=== PATIENT | male | born 1960 | race Caucasian/White ===

== ENCOUNTER 2017-04-21 17:49 | Emergency (ER) | payer MEDICAID, OTHER | END 2017-04-21 20:40 | disposition left against medical advice (07) | LOC: ED 20:34 | DX: Z53.21 Procedure and treatment not carried out due to patient leaving prior to being seen by health care provider (principal); F10.129 Alcohol abuse with intoxication, unspecified ==

== ENCOUNTER 2017-05-08 16:44 | Emergency (ER) | payer MEDICAID, OTHER ==
[~2017-05-08] VITALS: Ht 167.6 cm; Wt 78.0 kg
[2017-05-08 16:52] VITALS: BP 173/103
== END 2017-05-08 18:03 ==
LOC: ED 17:57
DX: Z53.21 Procedure and treatment not carried out due to patient leaving prior to being seen by health care provider (principal)

== ENCOUNTER 2017-05-21 11:51 | Emergency (ER) | payer MEDICAID ==
[~2017-05-21] VITALS: Ht 172.7 cm; Wt 75.0 kg
[2017-05-21] MEDS ORDERED: SODIUM CHLORIDE FLUSH 10ML SYR IVF ONE (12:30)
[2017-05-21] MEDS ORDERED: THIAMINE 100 MG/ML, 2ML IM ONE (12:30)
[2017-05-21] MEDS ORDERED: LORazepam 2 MG/ML, 1ML IVPush PRN (12:30)
[2017-05-21] MEDS ORDERED: SODIUM CHLORIDE 0.9% 1,000ML IVBOLUS ONE (12:30)
[2017-05-21] MEDS ORDERED: ONDANSETRON 2MG/ML, 2ML IVPush ONE (12:30)
[2017-05-21] MEDS ORDERED: THIAMINE 100 MG/ML, 2ML ONE (12:39)
[2017-05-21] MEDS ORDERED: ONDANSETRON 2MG/ML, 2ML ONE (12:40)
[2017-05-21] MEDS ORDERED: LORazepam 2 MG/ML, 1ML ONE (12:40)
[2017-05-21 12:57] LABS: BASOPHILS # (AUTO) 0.03 x10^3/uL (0-0.1); BASOPHILS % (AUTO) 1 % (0-1); EOSINOPHILS # (AUTO) 0.13 x10^3/uL (0-0.4); EOSINOPHILS % (AUTO) 2 % (1-7); LYMPHOCYTES # (AUTO) 1.89 x10^3/uL (1-3.4); LYMPHOCYTES % (AUTO) 27 % (22-44); MD NO; MEAN CORPUSCULAR HEMOGLOBIN 34.6 pg (27.5-34.5); MEAN CORPUSCULAR VOLUME 101.8 fL (81-97); MEAN PLATELET VOLUME 8.6 fL (7.4-10.4); MONOCYTES # (AUTO) 1.19 x10^3/uL (0.2-0.8); MONOCYTES % (AUTO) 17 % (2-9); NEUTROPHILS # (AUTO) 3.66 x10^3/uL (1.8-6.8); NEUTROPHILS % (AUTO) 53 % (42-75); PLATELET COUNT 183 x10^3/uL (130-400); RED BLOOD COUNT 4.66 x10^6/uL (4.38-5.82); RED CELL DISTRIBUTION WIDTH 14.4 % (9.4-14.8)
[2017-05-21] MEDS ORDERED: PLEASE ENTER HEIGHT AND WEIGHT MC SCH (13:00)
[2017-05-21 13:04] LABS: ALANINE AMINOTRANSFERASE 126 U/L (12-78); ALBUMIN 3.5 g/dL (3.4-5.0); ANION GAP 11 mmol/L (5-15); CALCIUM 8.1 mg/dL (8.5-10.1); CHLORIDE 107 mmol/L (98-107); CREATININE 0.81 mg/dL (0.7-1.3)
[2017-05-21 13:07] LABS: ALKALINE PHOSPHATASE 78 U/L (45-117); BILIRUBIN,TOTAL 0.6 mg/dL (0.2-1.0); TOTAL PROTEIN 7.6 g/dL (6.4-8.2)
[2017-05-21 13:30] LABS: MICROSCOPIC INDICATED
[2017-05-21 13:57] LABS: CULTURE INDICATED? NO
[2017-05-21 14:18] VITALS: BP 119/74
== END 2017-05-21 15:36 | disposition home or self-care (01) ==
LOC: ED 13:12
DX: F10.239 Alcohol dependence with withdrawal, unspecified (principal); F17.200 Nicotine dependence, unspecified, uncomplicated
CPT/HCPCS: 36415; 80053; 80307; 81001; 85025; 93005; 96361; 96372; 96374; 96375; 99285; J2060; J2405; J3411; J7030

== ENCOUNTER 2017-08-28 15:01 | Emergency (ER) | payer MEDICAID ==
[~2017-08-28] VITALS: Ht 170.2 cm; Wt 75.0 kg
[2017-08-28] MEDS ORDERED: THIAMINE 100MG TABLET ONE (15:15)
[2017-08-28] MEDS ORDERED: ONDANSETRON ODT 4 MG ONE (15:15)
[2017-08-28] MEDS ORDERED: CHLORDIAZEPOXIDE 25 MG CAPSULE ONE (15:15)
[2017-08-28] MEDS ORDERED: THIAMINE 100MG TABLET PO ONE (15:30)
[2017-08-28] MEDS ORDERED: ONDANSETRON ODT 4 MG PO ONE (15:30)
[2017-08-28] MEDS ORDERED: CHLORDIAZEPOXIDE 25 MG CAPSULE PO ONE (15:30)
[2017-08-28] MEDS ORDERED: CHLORDIAZEPOXIDE 25 MG CAPSULE PO PRN (15:30)
[2017-08-28 15:45] LABS: ALBUMIN 3.8 g/dL (3.4-5.0); ANION GAP 15 mmol/L (5-15); CALCIUM 8.4 mg/dL (8.5-10.1); CHLORIDE 101 mmol/L (98-107)
[2017-08-28 15:50] LABS: ALANINE AMINOTRANSFERASE 284 U/L (12-78); ALKALINE PHOSPHATASE 106 U/L (45-117); BILIRUBIN,TOTAL 0.9 mg/dL (0.2-1.0); CREATININE 0.77 mg/dL (0.7-1.3); TOTAL PROTEIN 8.2 g/dL (6.4-8.2)
[2017-08-28 16:06] VITALS: BP 162/86
[2017-08-28 16:15] LABS: BASOPHILS # (AUTO) 0.06 x10^3/uL (0-0.1); BASOPHILS % (AUTO) 1 % (0-1); EOSINOPHILS # (AUTO) 0.08 x10^3/uL (0-0.4); EOSINOPHILS % (AUTO) 1 % (1-7); LYMPHOCYTES # (AUTO) 1.73 x10^3/uL (1-3.4); LYMPHOCYTES % (AUTO) 27 % (22-44); MD SCAN; MEAN CORPUSCULAR HEMOGLOBIN 33.6 pg (27.5-34.5); MEAN PLATELET VOLUME 8.9 fL (7.4-10.4); MONOCYTES # (AUTO) 1.01 x10^3/uL (0.2-0.8); MONOCYTES % (AUTO) 16 % (2-9); NEUTROPHILS # (AUTO) 3.59 x10^3/uL (1.8-6.8); NEUTROPHILS % (AUTO) 56 % (42-75); PLATELET COUNT 138 x10^3/uL (130-400); RED BLOOD COUNT 4.63 x10^6/uL (4.38-5.82); RED CELL DISTRIBUTION WIDTH 15.3 % (9.4-14.8)
== END 2017-08-28 16:46 | disposition home or self-care (01) ==
LOC: ED 16:40
DX: F10.239 Alcohol dependence with withdrawal, unspecified (principal); Z79.899 Other long term (current) drug therapy; F17.210 Nicotine dependence, cigarettes, uncomplicated
CPT/HCPCS: 36415; 80053; 80307; 85025; 93005; 99285; 99406; Q0162

== ENCOUNTER 2017-11-29 21:46 | Inpatient (IN) | payer MEDICAID ==
[~2017-11-29] VITALS: Ht 172.7 cm; Wt 77.1 kg
[~2017-11-29 21:46] MED LIST: SODIUM CHLORIDE 0.9% 1,000 ML IV ONE
[2017-11-29] MEDS ORDERED: PLEASE ENTER ALLERGIES MC SCH (22:00)
[2017-11-29] MEDS ORDERED: SODIUM CHLORIDE 0.9% 1,000ML IVBOLUS ONE (22:00)
[2017-11-29] MEDS ORDERED: NALOXONE 1 MG/ML, 2ML IVPush ONE (22:00)
[2017-11-29 22:05] LABS: MEAN CORPUSCULAR HGB CONC 33.9 g/dL (33.2-36.2); MEAN CORPUSCULAR VOLUME 97.4 fL (81-97); MEAN PLATELET VOLUME 8.1 fL (7.4-10.4); PLATELET COUNT 292 x10^3/uL (130-400); RED BLOOD COUNT 4.94 x10^6/uL (4.38-5.82); RED CELL DISTRIBUTION WIDTH 13.6 % (9.4-14.8)
[2017-11-29 22:11] LABS: ALANINE AMINOTRANSFERASE 27 U/L (12-78); ANION GAP 12 mmol/L (5-15); CALCIUM 7.9 mg/dL (8.5-10.1); CHLORIDE 108 mmol/L (98-107); CREATININE 1.15 mg/dL (0.7-1.3); SALICYLATE LEVEL 4.9 mg/dL (2.8-20.0)
[2017-11-29 22:18] LABS: MD YES
[2017-11-29 22:21] LABS: ALKALINE PHOSPHATASE 71 U/L (45-117); BILIRUBIN,TOTAL 0.3 mg/dL (0.2-1.0); TOTAL PROTEIN 8.5 g/dL (6.4-8.2)
[2017-11-29 22:22] LABS: <RBC MORPHOLOGY> NORMAL; BAND#(MANUAL) 0.12 x10^3/uL; BANDS%(MANUAL) 1 % (0-7); BASOS#(MANUAL) 0.12 x10^3/uL (0-0.1); BASOS% (MANUAL) 1 % (0-1); EOS#(MANUAL) 0.81 x10^3/uL (0.0-0.4); EOS% (MANUAL) 7 % (1-7); LYMPH#(MANUAL) 5.75 x10^3/uL (1-3.4); LYMPHS% (MANUAL) 50 % (22-44); MONOS#(MANUAL) 0.35 x10^3/uL (0.3-2.7); MONOS% (MANUAL) 3 % (2-9); SEG#(MANUAL) 4.37 x10^3/uL (1.8-6.8); SEGS% (MANUAL) 38 % (42-75)
[2017-11-29 22:23] LABS: <PLATELET ESTIMATE> ADEQUATE; <PLT MORPHOLOGY> NORMAL PLT MORPH
[2017-11-29 22:26] LABS: ACETAMINOPHEN < 2 mcg/mL (10-30)
[2017-11-29] MEDS ORDERED: LABETALOL 5MG/ML, 20ML IVPush PRN (23:00)
[2017-11-29] MEDS ORDERED: POLYETHYLENE GLYCOL 17 GM PACKET PO PRN (23:00)
[2017-11-29] MEDS ORDERED: OXYcodone IR 5MG TABLET PO PRN (23:00)
[2017-11-29] MEDS ORDERED: ONDANSETRON ODT 4 MG PO PRN (23:00)
[2017-11-29] MEDS ORDERED: PROMETHAZINE 25 MG/ML, 1ML IM PRN (23:00)
[2017-11-29] MEDS ORDERED: morphine SULFATE 10 MG/ML, 1ML IVPush PRN (23:00)
[2017-11-29] MEDS ORDERED: ACETAMINOPHEN 325 MG TABLET PO PRN (23:00)
[2017-11-29] MEDS ORDERED: BISACODYL 10 MG SUPP PR PRN (23:00)
[2017-11-29] MEDS ORDERED: hydrALAzine 20 MG/ML, 1ML IVPush PRN (23:00)
[2017-11-29] MEDS ORDERED: DOCUSATE 100 MG CAPSULE PO PRN (23:00)
[2017-11-29] MEDS ORDERED: POTASSIUM CHLORIDE 40 MEQ in SODIUM CHLORIDE 0.9% 500 ML IV ONE (23:30)
[2017-11-29] MEDS ORDERED: LORazepam 2 MG/ML, 1ML IV PRN ×4 (23:30)
[2017-11-29] MEDS ORDERED: LORazepam 1MG TABLET PO PRN ×4 (23:30)
[2017-11-29 23:33] LABS: FREE T4 (FREE THYROXINE) 0.77 ng/dL (0.76-1.46); THYROID STIMULATING HORMONE 3.34 mIU/L (0.358-3.740)
[2017-11-29 23:40] VITALS: BP 116/74
[2017-11-29 23:50] LABS: HEMOGLOBIN A1C 5.5 % (4.2-6.3)
[2017-11-30] MEDS: FAMOTIDINE 20 MG/2 ML IVPush SCH ×3 (00:16→19:55)
[2017-11-30] MEDS: NICOTINE 7 MG/24 HR PATCH.TD24 TD SCH ×2 (00:16→23:22)
[2017-11-30] MEDS: HEPARIN 5,000 UNITS/ML, 1ML SQ SCH ×3 (00:17→16:54)
[2017-11-30 00:24] VITALS: BP 116/74
[2017-11-30 02:29] VITALS: BP 109/72
[2017-11-30 02:56] LABS: MICROSCOPIC NOT IND
[2017-11-30 03:00] LABS: CULTURE INDICATED? NO
[2017-11-30 03:08] LABS: AMPHETAMINE SCREEN, URINE Negative (Negative); BARBITURATE SCREEN, URINE Negative (Negative); BENZODIAZEPINE SCREEN, URINE Negative (Negative); CANNABINOID SCREEN, URINE Positive (Negative); COCAINE SCREEN, URINE Negative (Negative); METHADONE SCREEN, URINE Negative (Negative); OPIATE SCREEN, URINE Positive (Negative)
[2017-11-30] MEDS: ONDANSETRON 2MG/ML, 2ML IVPush PRN ×2 (04:03→11:35)
[2017-11-30] MEDS: SODIUM CHLORIDE 0.9% 1,000 ML IV SCH ×2 (04:03→11:19)
[2017-11-30 05:32] LABS: BASOPHILS # (AUTO) 0.14 x10^3/uL (0-0.1); BASOPHILS % (AUTO) 1 % (0-1); EOSINOPHILS # (AUTO) 0.12 x10^3/uL (0-0.4); EOSINOPHILS % (AUTO) 1 % (1-7); LYMPHOCYTES # (AUTO) 2.21 x10^3/uL (1-3.4); LYMPHOCYTES % (AUTO) 23 % (22-44); MD NO; MEAN CORPUSCULAR HEMOGLOBIN 32.7 pg (27.5-34.5); MEAN CORPUSCULAR HGB CONC 33.2 g/dL (33.2-36.2); MEAN CORPUSCULAR VOLUME 98.4 fL (81-97); MEAN PLATELET VOLUME 8.2 fL (7.4-10.4); MONOCYTES # (AUTO) 0.76 x10^3/uL (0.2-0.8); MONOCYTES % (AUTO) 8 % (2-9); NEUTROPHILS # (AUTO) 6.46 x10^3/uL (1.8-6.8); NEUTROPHILS % (AUTO) 67 % (42-75); PLATELET COUNT 254 x10^3/uL (130-400); RED BLOOD COUNT 4.34 x10^6/uL (4.38-5.82)
[2017-11-30 05:44] LABS: ALBUMIN 3.3 g/dL (3.4-5.0); ANION GAP 7 mmol/L (5-15); CALCIUM 7.1 mg/dL (8.5-10.1); CHLORIDE 112 mmol/L (98-107)
[2017-11-30 05:48] LABS: ALANINE AMINOTRANSFERASE 24 U/L (12-78); ALKALINE PHOSPHATASE 56 U/L (45-117); BILIRUBIN,TOTAL 0.3 mg/dL (0.2-1.0); CHOL/HDL RATIO 3.5; CHOLESTEROL, TOTAL 145 mg/dL (140-239); CREATININE 0.73 mg/dL (0.7-1.3); HDL CHOL % 29 % (26-37); HDL CHOLESTEROL (DIRECT) 42 mg/dL (40-60); LDL CHOLESTEROL,CALCULATED 83 mg/dL (54-169); TOTAL PROTEIN 6.9 g/dL (6.4-8.2); TRIGLYCERIDES 98 mg/dL (50-200); VLDL CHOLESTEROL 20 mg/dL (0-25)
[2017-11-30 07:50] VITALS: BP 121/76
[2017-11-30] MEDS: LORazepam 2 MG/ML, 1ML IV PRN ×2 (08:50→12:42)
[2017-11-30] MEDS: MULTIVITAMIN 1 TABLET PO SCH (11:16)
[2017-11-30] MEDS: POTASSIUM CHLORIDE 20 MEQ, MAGNESIUM SULFATE 1 GM, THIAMINE 200 MG, FOLIC ACID 1 MG, MV... IV SCH (11:40)
[2017-11-30] MEDS: CHLORDIAZEPOXIDE 10 MG CAPSULE PO SCH ×2 (11:40→19:54)
[2017-11-30 15:07] VITALS: BP 133/79
[2017-11-30] MEDS: LORazepam 0.5MG TABLET PO PRN (15:26)
[2017-11-30 20:37] VITALS: BP 116/76
[2017-12-01] MEDS: HEPARIN 5,000 UNITS/ML, 1ML SQ SCH ×4 (00:09→23:59)
[2017-12-01 00:13] VITALS: BP 110/70
[2017-12-01] MEDS: CHLORDIAZEPOXIDE 10 MG CAPSULE PO SCH ×3 (04:02→20:48)
[2017-12-01] MEDS: ONDANSETRON 2MG/ML, 2ML IVPush PRN (07:40)
[2017-12-01] MEDS: MULTIVITAMIN 1 TABLET PO SCH (07:40)
[2017-12-01] MEDS: FAMOTIDINE 20 MG/2 ML IVPush SCH ×2 (07:41→20:48)
[2017-12-01 07:58] VITALS: BP 114/69
[2017-12-01] MEDS: POTASSIUM CHLORIDE 20 MEQ, MAGNESIUM SULFATE 1 GM, THIAMINE 200 MG, FOLIC ACID 1 MG, MV... IV SCH (12:02)
[2017-12-01 14:11] VITALS: BP 132/84
[2017-12-01] MEDS: LORazepam 0.5MG TABLET PO PRN ×2 (15:24→20:48)
[2017-12-01 19:02] VITALS: BP 130/82
[2017-12-01] MEDS: NICOTINE 7 MG/24 HR PATCH.TD24 TD SCH (23:59)
[2017-12-02 00:35] VITALS: BP 133/85
[2017-12-02] MEDS: CHLORDIAZEPOXIDE 10 MG CAPSULE PO SCH (04:45)
[2017-12-02 05:05] LABS: ALANINE AMINOTRANSFERASE 23 U/L (12-78); ANION GAP 5 mmol/L (5-15); CALCIUM 7.8 mg/dL (8.5-10.1); CHLORIDE 107 mmol/L (98-107); CREATININE 0.61 mg/dL (0.7-1.3)
[2017-12-02 05:31] LABS: ALKALINE PHOSPHATASE 68 U/L (45-117); BILIRUBIN,TOTAL 0.8 mg/dL (0.2-1.0); FOLATE LEVEL 19.2 ng/mL (3.1-17.5); TOTAL PROTEIN 6.8 g/dL (6.4-8.2)
[2017-12-02 07:02] VITALS: BP 136/79
[2017-12-02] MEDS: HEPARIN 5,000 UNITS/ML, 1ML SQ SCH ×3 (07:59→21:22)
[2017-12-02] MEDS: FAMOTIDINE 20 MG/2 ML IVPush SCH (07:59)
[2017-12-02] MEDS: MULTIVITAMIN 1 TABLET PO SCH (07:59)
[2017-12-02] MEDS: LORazepam 0.5MG TABLET PO PRN ×2 (12:32→22:16)
[2017-12-02 13:46] VITALS: BP 129/74
[2017-12-02] MEDS ORDERED: MAGNESIUM SULFATE PMX 4GM/100M 100 ML IV ONE (14:30)
[2017-12-02 19:23] VITALS: BP 120/73
[2017-12-02] MEDS ORDERED: PAIN MED PO (21:30)
[2017-12-02] MEDS ORDERED: HYDR50TA13 PO ×2 (21:30)
[2017-12-02] MEDS ORDERED: PAIN MEDS PO (21:30)
[2017-12-02] MEDS ORDERED: TRAZ-137 PO (21:30)
[2017-12-02] MEDS ORDERED: CLON2TAB9 PO (21:30)
[2017-12-02] MEDS: NICOTINE 7 MG/24 HR PATCH.TD24 TD SCH (23:29)
[2017-12-03 02:00] VITALS: BP 134/86
[2017-12-03] MEDS: HEPARIN 5,000 UNITS/ML, 1ML SQ SCH ×3 (05:47→21:06)
[2017-12-03 07:25] VITALS: BP 129/80
[2017-12-03] MEDS: FOLIC ACID 1 MG TABLET PO SCH (08:48)
[2017-12-03] MEDS: THIAMINE 100MG TABLET PO SCH (08:48)
[2017-12-03] MEDS: MULTIVITAMIN 1 TABLET PO SCH (08:48)
[2017-12-03] MEDS ORDERED: MULTIVITAMIN 1 TABLET PO SCH (09:00)
[2017-12-03 14:54] VITALS: BP 120/80
[2017-12-03 15:31] VITALS: BP 127/92
[2017-12-03 16:19] VITALS: BP 150/88
[2017-12-03] MEDS: LORazepam 0.5MG TABLET PO PRN (17:04)
[2017-12-03 19:24] VITALS: BP 124/90
[2017-12-03] MEDS: NICOTINE 7 MG/24 HR PATCH.TD24 TD SCH (21:05)
[2017-12-04] MEDS: HEPARIN 5,000 UNITS/ML, 1ML SQ SCH ×2 (05:50→13:00)
[2017-12-04] MEDS: LORazepam 0.5MG TABLET PO PRN (05:51)
[2017-12-04 07:25] VITALS: BP 124/84
[2017-12-04] MEDS: FOLIC ACID 1 MG TABLET PO SCH (08:33)
[2017-12-04] MEDS: MULTIVITAMIN 1 TABLET PO SCH (08:34)
[2017-12-04] MEDS: THIAMINE 100MG TABLET PO SCH (08:34)
== END 2017-12-04 15:26 | disposition home or self-care (01) | DRG 917 ==
LOC: MERGE 21:46 → EDBD 21:46 → ED 22:54 → EDIP 23:00 → 4WST 23:35 → 2N 12-03 16:13
PROVIDERS: ADMIT Internal Medicine; ATTEND Internal Medicine
DX: T40.1X1A Poisoning by heroin, accidental (unintentional), initial encounter (principal); G92 Toxic encephalopathy; J96.01 Acute respiratory failure with hypoxia; F11.20 Opioid dependence, uncomplicated; F10.188 Alcohol abuse with other alcohol-induced disorder; T51.0X1A Toxic effect of ethanol, accidental (unintentional), initial encounter; F32.9 Major depressive disorder, single episode, unspecified; F41.9 Anxiety disorder, unspecified; F17.210 Nicotine dependence, cigarettes, uncomplicated; D72.829 Elevated white blood cell count, unspecified; D75.89 Other specified diseases of blood and blood-forming organs; E86.0 Dehydration; E87.6 Hypokalemia; E83.42 Hypomagnesemia; G31.2 Degeneration of nervous system due to alcohol; W19.XXXA Unspecified fall, initial encounter; F43.10 Post-traumatic stress disorder, unspecified; Y90.8 Blood alcohol level of 240 mg/100 ml or more; Z81.1 Family history of alcohol abuse and dependence; Z81.3 Family history of other psychoactive substance abuse and dependence; Z90.81 Acquired absence of spleen; Y93.89 Activity, other specified; Y92.89 Other specified places as the place of occurrence of the external cause; Y99.8 Other external cause status
CPT/HCPCS: 36415; 87806; 99291; S0028; 70450; 71045; 80053; 80061; 80307; 80329; 81003; 82607; 82746; 83036; 83735; 84439; 84443; 85025; 86704; 86705; 86706; 86708; 86709; 86803; 87340; 93005; 96374; J1644; J2405; J2550; J3411; J3475; J3480; G0475; G0480; J2060; J2310; J7030; J7040

== ENCOUNTER 2018-10-23 14:33 | Emergency (ER) | payer MEDICAID, OTHER ==
[~2018-10-23] VITALS: Ht 170.2 cm; Wt 73.0 kg
[~2018-10-23 14:33] MED LIST changes: +CLON2TAB9 PO; +HYDR50TA13 PO; +PAIN MED PO; +PAIN MEDS PO; -SODIUM CHLORIDE 0.9% 1,000 ML IV ONE; +TRAZ-137 PO
[2018-10-23 16:51] VITALS: BP 112/78
== END 2018-10-23 17:25 | disposition home or self-care (01) ==
LOC: ED 15:00
DX: S93.492A Sprain of other ligament of left ankle, initial encounter (principal); S80.11XA Contusion of right lower leg, initial encounter; W01.0XXA Fall on same level from slipping, tripping and stumbling without subsequent striking against object, initial encounter; Y93.01 Activity, walking, marching and hiking; Y92.89 Other specified places as the place of occurrence of the external cause; Y99.8 Other external cause status
CPT/HCPCS: 29515; 99283